=== PATIENT | female | born 1975 | race Caucasian/White ===

== ENCOUNTER 2016-12-08 10:23 | Emergency (ER) | payer OTHER ==
[2016-12-08 11:51] LABS: BASOPHIL 0.5 % (0-2); EOSINOPHIL 5.1 % (0-5); HCT 39.5 % (37.0-47.0); HGB 13.6 g/dl (12.5-16.0); LYMPHOCYTE 22.2 % (15-48); MCH 31.3 pg (25.0-31.0); MCHC 34.4 g/dL (32.0-36.0); MCV 90.8 fL (78.0-100.0); MONOCYTE 6.7 % (0-12); MPV 9.3 fL (6.0-9.5); NEUTROPHIL 65.5 % (41-80); PLT 304 K/uL (150-400); RBC 4.35 M/uL (4.20-5.40); RDW 12.9 % (11.5-14.0); WBC 10.8 K/uL (4.0-10.5)
[2016-12-08 12:06] LABS: ALBUMIN 4.4 g/dL (3.5-5.0); BILIRUBIN - TOTAL 0.4 mg/dL (0.1-1.0); CREATININE 0.8 mg/dL (0.5-1.0); GLOBULIN (CALCULATION) 2.5 g/dL (2.2-4.2); POTASSIUM 3.9 mmol/L (3.5-5.1); TOTAL PROTEIN 6.9 g/dL (6.4-8.3)
[2016-12-08 12:38] LABS: BILIRUBIN NEGATIVE (NEGATIVE); BLOOD 3+ Ery/uL (NEGATIVE); CLARITY CLEAR (CLEAR); COLOR YELLOW (YELLOW); GLUCOSE (U) NORMAL (NORMAL); KETONE (U) NEGATIVE (NEGATIVE); LEUKOCYTES NEGATIVE Leu/uL (NEGATIVE); NITRITE NEGATIVE (NEGATIVE); PROTEIN NEGATIVE (NEGATIVE); SPECIFIC GRAVITY >=1.030 (1.001-1.030); UROBILINOGEN 0.2 mg/dL (0.2-1.0); pH 5.5 (5.0-9.0)
[2016-12-08 12:46] LABS: SQUAMOUS EPITHELIAL CELLS 20-50
[2016-12-08 12:47] LABS: BACTERIA 1+
== END 2016-12-08 12:59 | disposition home or self-care (01) ==
LOC: FER 10:23
PROVIDERS: Nurse Practitioner
DX: D25.9 Leiomyoma of uterus, unspecified (principal); I10 Essential (primary) hypertension; Z87.42 Personal history of other diseases of the female genital tract; Z90.49 Acquired absence of other specified parts of digestive tract
CPT/HCPCS: 36415; 76830; 80053; 81001; 82150; 83690; 85025